=== PATIENT | female | born 1960 | race Hispanic/Latino ===

== ENCOUNTER 2019-06-30 23:36 | Observation (INO) | payer SELFPAY ==
[2019-07-01 00:10] LABS: #Basophils 0.1 thou/uL (0.0-0.2); #Lymphocytes 2.1 thou/uL (1.20-3.40); #Monocytes 0.7 thou/uL (0.11-0.59); #Neutrophils 9.5 thou/uL (1.40-6.50); %Basophils 0.6 % (0.0-1.0); %Eosinophils 0.1 % (0.0-10.0); %Lymphocytes 16.7 % (21.0-51.0); %Monocytes 5.5 % (0.0-10.0); %Neutrophils 77.1 % (42.0-75.0); Hemoglobin 14.7 g/dL (12.0-16.0); Mean Corpuscular HGB CONC 33.4 g/dL (32.0-36.0); Mean Corpuscular Hemoglobin 29.4 pg (27.0-31.0); Mean Corpuscular Volume 88.2 fL (78.0-98.0); Mean Platelet Volume 10.1 fL (7.4-10.4); Platelet Count 226 thou/uL (130-400); RBC Distribution Width 11.6 % (11.5-14.5); Red Blood Cell (RBC) Count 4.99 mill/uL (4.20-5.40); White Blood Cell (WBC) Count 12.4 thou/uL (4.8-10.8)
[2019-07-01 00:32] LABS: ALT (SGPT) 13 U/L (8-55); AST (SGOT) 14 U/L (5-34); Albumin 4.5 g/dL (3.5-5.0); Alkaline Phosphatase 79 U/L (40-110); Anion Gap 17 mmol/L (10-20); BUN (Urea Nitrogen) 14 mg/dL (9.8-20.1); Bilirubin, Total 0.8 mg/dL (0.2-1.2); Calc. Creatinine Clearance 0 mL/min (70-130); Calcium 10.2 mg/dL (7.8-10.44); Carbon Dioxide 22 mmol/L (22-29); Chloride 104 mmol/L (98-107); Estimated GFR-MDRD 59; Globulin 3.2 g/dL (2.4-3.5); Glucose 277 mg/dL (70-105); Potassium 4.1 mmol/L (3.5-5.1); Protein, Total 7.7 g/dL (6.0-8.3); Sodium 139 mmol/L (136-145)
[2019-07-01] MEDS ORDERED: Aspirin 81 mg Enteric Coated Tablet ONE (00:34)
[2019-07-01] MEDS ORDERED: hydrALAZINE 20 MG/ML VIAL ONE (00:34)
[2019-07-01] MEDS ORDERED: Nitroglycerin 2% Ointment 1 INCH/1 GM Packet ONE (00:34)
[2019-07-01] MEDS ORDERED: hydrALAZINE 20 MG/ML VIAL SLOW IVP PRN (01:40)
[2019-07-01] MEDS ORDERED: HumaLOG 300 UNITS/3 ML VIAL SC PRN (01:42)
[2019-07-01] MEDS ORDERED: Dextrose 50% Abboject 50 ML SYRINGE SLOW IVP PRN (01:42)
[2019-07-01] MEDS ORDERED: Dextrose 5% in Water 1,000 ML IV PRN (01:42)
[2019-07-01] MEDS ORDERED: Sodium Chloride 0.9% 1,000 ML IV SCH (01:45)
--- NOTE | 2019-07-01 02:09 | HP ---
PRIMARY CARE PROVIDER: None. CHIEF COMPLAINT: Chest pain. HISTORY OF PRESENT ILLNESS: Ms. Brown is a pleasant 58-year-old lady, who was seen at [facility] on 07/01/2019. She is visiting from [place]. She reports that she was diagnosed with hypertension 18 or 19 years ago, but subsequently was told that she did not have hypertension. She does have a history of diabetes mellitus. She was woken up from sleep around 6:00 am yesterday because of chest pain. She describes it as retrosternal, pressure like, on and off, nonradiating, accompanied by shortness of breath and nausea, lasting 5 to 10 minutes, no known aggravating or relieving factors. She denies any cough, fevers, or chills. She presented to the emergency room because of on and off chest pain. REVIEW OF SYSTEMS: All systems were reviewed and found to be negative except for the pertinent positives mentioned above. PAST MEDICAL HISTORY: Diabetes mellitus type 2, gastroesophageal reflux disease. PAST SURGICAL HISTORY: None. ALLERGIES: NO KNOWN DRUG ALLERGIES. CURRENT MEDICATIONS: 1. Omeprazole 20 mg daily. 2. Linagliptin/metformin 2.5/850 mg 2 times a day. 3. Diclofenac p.r.n. SOCIAL HISTORY: The patient denies tobacco use, alcohol use, or recreational drug use. FAMILY HISTORY: Significant for thyroid disorders. PHYSICAL EXAMINATION: GENERAL: On examination, Ms. Brown is awake and alert, not in acute distress. VITAL SIGNS: Blood pressure is 212/97, pulse 93, respiratory rate 20, and oxygen saturation 97% on room air, temperature is 99.1 degrees Fahrenheit. EYES: No scleral icterus, no conjunctival pallor. ENT: Moist mucosal membranes. No oropharyngeal erythema or exudates. NECK: Supple, nontender, trachea is midline. RESPIRATORY: Accessory muscles of breathing are not active. Chest wall movements are symmetric bilaterally. Lungs are clear to auscultation without wheeze, rhonchi, or crepitations. CARDIOVASCULAR: S1 and S2 are heard, regular. Peripheral pulses palpable. ABDOMEN: Soft, nontender, bowel sounds are heard. NEUROLOGIC: Cranial nerves 2 through 12 are intact. MUSCULOSKELETAL: Power is 5/5 in all 4 extremities. SKIN: No rashes or subcutaneous nodules. LYMPHATIC: No cervical lymphadenopathy. PSYCHIATRIC: Normal mood, normal affect. The patient is oriented to person, place, and time. LABORATORY DATA: Ms. Brown's labs and investigations were reviewed. I reviewed her electrocardiogram, which shows normal sinus rhythm, no ST changes to suggest an acute coronary syndrome. I also reviewed her chest x-ray, which does not show any pulmonary infiltrates. She has mild leukocytosis with 12,400 white cells, of which 9500 are neutrophils. Hemoglobin and platelet count are normal. D-dimer is less than 0.27. Comprehensive metabolic profile is remarkable only for elevated blood glucose of 277. Troponin I is normal at 0.013. ASSESSMENT AND PLAN: Ms. Brown is a pleasant 58-year-old lady, who was seen at [facility] on 07/01/2019. Her problem list includes: 1. Chest pain: Ms. Brown is presenting with chest pain. Pulmonary embolism has been ruled out with a negative D-dimer. She will be admitted to the hospital for telemetry monitoring and for stress test. Further management depending on outcome of the test. 2. Hypertensive urgency: She is also in hypertensive urgency. She is currently not on any antihypertensives at home. I will start her on amlodipine at this time. If her blood pressure continues to be high, she can be started on a beta karen, since she is also in sinus tachycardia in the emergency room. 3. Gastroesophageal reflux disease: Continue PPI. 4. Diabetes mellitus type 2: Start Accu-Cheks and insulin sliding scale. LEVEL OF COMPLEXITY: High. LEVEL OF COMPLEXITY: High. Job ID: [id number]
[2019-07-01 02:24] LABS: Hemoglobin A1c 13.7 % (4.0-6.0)
[2019-07-01 03:34] LABS: Troponin I 0.012 ng/mL (< 0.028)
[2019-07-01 06:59] LABS: Troponin I 0.022 ng/mL (< 0.028)
--- NOTE | 2019-07-01 07:52 | RAD ---
PORTABLE UPRIGHT FRONTAL CHEST RADIOGRAPH: DATE: 06/30/2019. COMPARISON: None. HISTORY: Hypertension. FINDINGS: Lungs are clear. Heart and mediastinal contours are unremarkable. IMPRESSION: No acute findings. POS: [facility]
[2019-07-01] MEDS ORDERED: metFORMIN 850 MG TAB PO SCH (08:00)
[2019-07-01 08:17] VITALS: TEMP 98.6
[2019-07-01] MEDS ORDERED: Amlodipine 5 MG TAB PO SCH (09:00)
[2019-07-01] MEDS ORDERED: FLU VACC QS2019-20(6MOS UP)/PF 60 MCG/0.5 ML SYRINGE IM ONE (09:00)
[2019-07-01] MEDS ORDERED: Aspirin 325 mg Enteric Coated Tablet PO SCH (09:00)
[2019-07-01 12:05] VITALS: BP 156/74
[2019-07-01] MEDS ORDERED: ADENOSINE 60 MG/20 ML VIAL ONE (13:00)
--- NOTE | 2019-07-01 13:05 | NM ---
NUCLEAR MEDICINE CARDIAC MYOCARDIAL PERFUSION SPECT EJECTION FRACTION STUDY WALL MOTION CINE: DATE: 07/01/2019 HISTORY: 58-year-old female with hypertension and diabetes mellitus presents with chest pain TECHNIQUE: Number of days: 1 Rest study: Technetium 99m-sestamibi (Cardiolite) dose: 10.2 mCi Pharmacologic stress: Adenosine dose: 39.2 mg Stress study: Technetium 99m-sestamibi (Cardiolite) dose: 30.2 mCi FINDINGS: CARDIAC (MYOCARDIAL PERFUSION) SPECT Distribution of sestamibi is homogeneous throughout the left ventricle, with no fixed or reversible m yocardial perfusion defects. EJECTION FRACTION STUDY Left ventricular EF = 78 % WALL MOTION CINE The left ventricular wall motion is normal. There is normal systolic wall thickening. IMPRESSION: Normal.
--- NOTE | 2019-07-01 22:03 | DIS ---
DATE OF ADMISSION: 07/01/2019 DATE OF DISCHARGE: 07/01/2019 DISCHARGE DIAGNOSES: 1. Chest pain, noncardiac. 2. Hypertension, labile. 3. Diabetes mellitus type 2, uncontrolled. CONSULTATIONS: None. IMAGIN. Portable chest x-ray dated 06/30/2019 showed no acute cardiopulmonary process. 2. Cardiolite stress test dated 07/01/2019 showed no evidence of ischemia with calculated ejection fraction of 78%. PERTINENT LABORATORY AND X-RAY FINDINGS: Hemoglobin A1c of 13.7. LFTs within normal limits. Troponin I negative x3. TSH 2.54. CBC showed a white blood cell count of 12.4, hemoglobin 15, hematocrit 44, platelet count 226. HOSPITAL COURSE: The patient was observed after presenting with chest pain, undergoing serial cardiac biomarkers, which were negative x3. The patient proceeded to Cardiolite stress testing showing no evidence of ischemia with calculated ejection fraction of 78%. The patient was noted with labile blood pressures, initiated on amlodipine 5 mg daily. We will continue amlodipine 5 mg daily with recommendations to monitor the blood pressure on an outpatient basis. The patient was also encouraged to manage her diabetes in a more aggressive manner after discharge. I have examined the patient a the time of discharge and discussed followup instructions. The patient verbalized understanding and agreement, ready for discharge on 07/01/2019. DISCHARGE MEDICATIONS: 1. Linagliptin/metformin 2.5 mg/850 mg 1 tablet p.o. b.i.d. 2. Omeprazole 20 mg p.o. daily. 3. Diclofenac 50 mg p.o. at bedtime. 4. Amlodipine 5 mg p.o. daily. FOLLOWUP: The patient followup with her primary care provider in [place] after returning home. CONDITION ON DISCHARGE: Stable. ACTIVITY: Ad-zeyad. DIET: Heart healthy and ADA. CODE STATUS: Full. DISPOSITION: To home, 07/01/2019. Job ID: [id number]
== END 2019-07-01 15:26 | disposition home or self-care (01) ==
LOC: ERS 23:36 → 2SW 07-01 03:32
PROVIDERS: ADMIT Internal Medicine; ATTEND Internal Medicine
DX: R07.9 Chest pain, unspecified (principal); I16.0 Hypertensive urgency; I10 Essential (primary) hypertension; E11.9 Type 2 diabetes mellitus without complications; K21.9 Gastro-esophageal reflux disease without esophagitis; Z79.84 Long term (current) use of oral hypoglycemic drugs; Z79.899 Other long term (current) drug therapy
CPT/HCPCS: 36415; 36416; 71045; 78452; 80053; 83036; 84443; 84484; 85025; 85379; 93005; 93017; 96361; 96376; A9500; G0378; J0153; J0360